=== PATIENT | female | born 1960 | race Caucasian/White ===

== ENCOUNTER 2018-08-26 14:59 | Outpatient (REF) | payer MEDICAID, SELFPAY ==
--- NOTE | 2018-08-26 14:48 | PAPFT_PTH ---
PATIENT: EARLE PETTY LOC: [facility] U#:[id number] AGE/SX: 58/F ROOM: RE08/26/[address]: Yuli Aaron MD : 1960 BED: DIS: 08/26/2018 SPEC #: [id number] RECD: 08/26/18 17:41 STATUS: NOAM REJv #: [id number] REJI: 08/26/18 14:[address]: Yuli Aaron DEPT: [facility] Cytology RECD BY: Lizz Vera ENTERED: 08/26/18 17:41 SP TYPE: PAPFT OTHR DR: David Ellis Tissues: 1 - CX/ENDOCX FOR PAP SMEARS Procedures: PAP THIN PREP/[facility] Screening HPV DNA PROBE Comments: [id number]
== END 2018-08-26 15:19 ==
LOC: LBN 14:59
PROVIDERS: PCP Naturopath; Visit Provider Obstetrics & Gynecology
DX: Z12.4 Encounter for screening for malignant neoplasm of cervix (principal); Z11.51 Encounter for screening for human papillomavirus (HPV)
CPT/HCPCS: 88142; 87624